=== PATIENT | female | born 1995 | race Hispanic/Latino ===

== ENCOUNTER 2023-02-12 10:58 | Emergency (ER) | payer SELFPAY ==
[2023-02-12 11:47] LABS: SARS-CoV-2 Antigen Rapid Res Positive (Negative)
--- NOTE | 2023-02-12 12:37 | ER ---
Nurse's Notes [facility] Name: Pushpa Valdes Age: 27 yrs Sex: Female : 1995 Arrival Date: 02/12/2023 Time: 10:58 Bed IW1 Private MD: Diagnosis: Fever, unspecified;SARS-associated coronavirus as the cause of diseases classified elsewhere;Cough Presentation: 02/12 11:17 Chief complaint: Patient states: cough, congestion, fever, body aches, and headache aa5 that began yesterday. Coronavirus screen: congestion, cough unrelated to allergies. Ebola Screen: Patient denies travel to an Ebola-affected area in the 21 days before illness onset. Initial Sepsis Screen: Does the patient meet any 2 criteria? HR > 90 bpm. Does the patient have a suspected source of infection? Yes:. Risk Assessment: Do you want to hurt yourself or someone else? Patient reports no desire to harm self or others. Onset of symptoms was February 11, 2023. 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 - Social history:: Smoking status: Patient denies any tobacco usage or history of. - Family history:: not pertinent. Assessment: 13:00 Reassessment: Patient is alert, oriented x 3, equal unlabored respirations, skin aa5 warm/dry/pink. Vital Signs: 11:17 BP 123 / 84; Pulse 118; Resp 20 S; Temp 100.4(O); Pulse Ox 100% on R/A; Weight 38.56 kg aa5 (R); Height 4 ft. 9 in. ; 11:17 Body Mass Index 18.39 (38.56 kg, 144.78 cm) aa5 ED Course: 11:00 Patient arrived in ED. im 11:01 Dean Starr MD is Attending Physician. [facility] 11:17 Arm band placed on. aa5 11:18 Triage completed. aa5 11:48 Notified ED physician of a critical lab result(s). covid+. ll1 Administered Medications: 13:05 Drug: Ibuprofen PO 400 mg PO once Route: PO; aa5 13:08 Follow up: Response: No adverse reaction aa5 13:05 Drug: AZITHromycin PO 500 mg PO once Route: PO; aa5 13: Follow up: Response: No adverse reaction aa5 13:05 Drug: Famotidine PO 40 mg PO once Route: PO; aa5 13:07 Follow up: Response: No adverse reaction aa5 13:05 Drug: Ondansetron PO 4 mg PO once Route: PO; aa5 13: Follow up: Response: No adverse reaction aa5 Outcome: 12:36 Discharge ordered by . ochoa 13:00 Discharged to home ambulatory, with significant other, aa5 13: Condition: stable 13:00 Discharge instructions given to patient, Instructed on discharge instructions, follow up and referral plans. medication usage, Demonstrated understanding of instructions, follow-up care, medications, Prescriptions given X 5 13:08 Patient left the ED. aa5 Signatures: Dean Starr MD MD cha Calderon, Audri, RN RN aa5 Tammy Melgoza, GEOFFREY RN ll1 Lacey Malik
--- NOTE | 2023-02-12 12:37 | EDPHYS ---
Physician Documentation [facility] Name: Pushpa Valdes Age: 27 yrs Sex: Female : 1995 Arrival Date: 02/12/2023 Time: 10:58 Bed IW1 Private MD: ED Physician Dean Starr HPI: 02/12 12:26 This 27 yrs old Female presents to ER via Ambulatory with complaints of Flu ochoa Symptoms. 12:26 The patient or guardian reports airway noise, cough, difficulty breathing, flu ochoa symptoms, arthralgias, low-grade fever, myalgias. Onset: The symptoms/episode began/occurred 1 day(s) ago. Modifying factors: The symptoms are alleviated by nothing. the symptoms are aggravated by cold environment. fever , cough , body aches x 1 day. Associated signs and symptoms: Pertinent positives: fever, nausea, rhinorrhea, sore throat. The patient reports fever, that was measured at 101 degrees Fahrenheit. Severity of symptoms: At their worst the symptoms were moderate in the emergency department the symptoms are unchanged. Associated signs and symptoms: Pertinent positives: backache, chills, cough, runny nose, sinus congestion, sinus drainage, sore throat, swelling. The patient has experienced similar episodes in the past, a few times. 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 - Social history:: Smoking status: Patient denies any tobacco usage or history of. - Family history:: not pertinent. ROS: 12:31 Eyes: Negative for injury, pain, redness, and discharge, ENT: Negative for injury, ochoa pain, and discharge, Neck: Negative for injury, pain, and swelling, Cardiovascular: Negative for chest pain, palpitations, and edema, Abdomen/GI: Negative for abdominal pain, nausea, vomiting, diarrhea, and constipation, Back: Negative for injury and pain, : Negative for injury, bleeding, discharge, and swelling, MS/Extremity: Negative for injury and deformity, Skin: Negative for injury, rash, and discoloration, Neuro: Negative for headache, weakness, numbness, tingling, and seizure, Psych: Negative for depression, anxiety, suicide ideation, homicidal ideation, and hallucinations, Allergy/Immunology: Negative for hives, rash, and allergies, Endocrine: Negative for neck swelling, polydipsia, polyuria, polyphagia, and marked weight changes, 12:31 Constitutional: Positive for chills, fatigue, fever, malaise, poor PO intake, 12:31 ENT: Positive for rhinorrhea, sinus congestion, sinus pain, sore throat, 12: Respiratory: Positive for cough, with no reported sputum, Exam: 12:31 Head/Face: Normocephalic, atraumatic. Eyes: Pupils equal round and reactive to light, ochoa extra-ocular motions intact. Lids and lashes normal. Conjunctiva and sclera are non-icteric and not injected. Cornea within normal limits. Periorbital areas with no swelling, redness, or edema. Neck: Trachea midline, no thyromegaly or masses palpated, and no cervical lymphadenopathy. Supple, full range of motion without nuchal rigidity, or vertebral point tenderness. No Meningismus. Chest/axilla: Normal chest wall appearance and motion. Nontender with no deformity. No lesions are appreciated. Respiratory: Lungs have equal breath sounds bilaterally, clear to auscultation and percussion. No rales, rhonchi or wheezes noted. No increased work of breathing, no retractions or nasal flaring. Abdomen/GI: Soft, non-tender, with normal bowel sounds. No distension or tympany. No guarding or rebound. No evidence of tenderness throughout. Back: No spinal tenderness. No costovertebral tenderness. Full range of motion. Skin: Warm, dry with normal turgor. Normal color with no rashes, no lesions, and no evidence of cellulitis. MS/ Extremity: Pulses equal, no cyanosis. Neurovascular intact. Full, normal range of motion. Neuro: Awake and alert, GCS 15, oriented to person, place, time, and situation. Cranial nerves II-XII grossly intact. Motor strength 5/5 in all extremities. Sensory grossly intact. Cerebellar exam normal. Normal gait. Psych: Awake, alert, with orientation to person, place and time. Behavior, mood, and affect are within normal limits. 12:31 Constitutional: The patient appears febrile, 12:31 ENT: Posterior pharynx: Airway: normal, no evidence of obstruction, Tonsils: are normal in appearance, with erythema, Uvula: normal, midline, non-edematous, no erythema, swelling, that is mild, erythema, that is mild, exudate, that is mild, peritonsillar mass, is not appreciated, Vital Signs: 11:17 BP 123 / 84; Pulse 118; Resp 20 S; Temp 100.4(O); Pulse Ox 100% on R/A; Weight 38.56 kg aa5 (R); Height 4 ft. 9 in. ; 11:17 Body Mass Index 18.39 (38.56 kg, 144.78 cm) aa5 MDM: 11:01 Patient medically screened. [facility] 12:34 Differential diagnosis: obstructed airway, bronchitis, flu, URI, viral Infection, ochoa bacterial infection, URI, bronchitis, pneumonia UTI, gastroenteritis. Antibiotic administration: The patient is discharged and will get outpatient antibiotics, Zithromax. Differential Diagnosis sepsis. Data reviewed: vital signs, nurses notes, lab test result(s), Flu: negative. I considered the following discharge prescriptions or medication management in the emergency department Medications were administered in the Emergency Department. See MAR. Test considered but Not performed: Labs: no cbc, no comp met. Historians other than the Patient: Family Member: . Care significantly affected by the following chronic conditions: none. Counseling: I had a detailed discussion with the patient and/or guardian regarding the historical points, exam findings, and any diagnostic results supporting the discharge/admit diagnosis, lab results, the need for outpatient follow up, for definitive care, a family practitioner. 02/12 11: Order name: Flu; Complete Time: 12:17 [facility] 02/12 11: Order name: SARS RAPID; Complete Time: 12:17 [facility] 02/12 11:01 Order name: Strep [facility] 02/12 11:48 Order name: Throat Culture EDMS Administered Medications: 13:05 Drug: Ibuprofen PO 400 mg PO once Route: PO; aa5 13:08 Follow up: Response: No adverse reaction aa5 13:05 Drug: AZITHromycin PO 500 mg PO once Route: PO; aa5 13:07 Follow up: Response: No adverse reaction aa5 13:05 Drug: Famotidine PO 40 mg PO once Route: PO; aa5 13:07 Follow up: Response: No adverse reaction aa5 13:05 Drug: Ondansetron PO 4 mg PO once Route: PO; aa5 13:07 Follow up: Response: No adverse reaction aa5 Disposition Summary: 02/12/23 12:36 Discharge Ordered Notes: Location: Home [facility] Problem: new [facility] Symptoms: have improved ochoa Condition: Stable ochoa Diagnosis - Fever, unspecified ochoa - SARS-associated coronavirus as the cause of diseases classified elsewhere [facility] - Cough ochoa Followup: [facility] - With: Private Physician - When: 2 - 3 days - Reason: Recheck today's complaints, Continuance of care, Re-evaluation by your physician Discharge Instructions: - Discharge Summary Sheet [facility] - Fever, Adult ochoa - Cool Mist Vaporizer [facility] - Cough, Adult [facility] - COVID-19 ochoa - COVID-19: What Your Test Results Mean - [facility] (12/12/2020) [facility] - 10 Things You Can Do to Manage Your COVID-19 Symptoms at Home - [facility] (09/29/2020) [facility] - Symptoms of COVID-19 - [facility] (06/05/2021) [facility] - Viral Illness, Adult [facility] - COVID-19: What to Do If You Are Sick - [facility] (06/05/2021) [facility] Forms: - Medication Reconciliation Form [facility] - Thank You Letter [facility] - Antibiotic Education [facility] - Prescription Opioid Use [facility] - Patient Portal Instructions [facility] - Leadership Thank You Letter [facility] - Work release form ll1 Prescriptions: - Paxlovid 300 mg (150 mg x 2)-100 mg Oral Tablet, Dose Pack - take 1 dose pack ORAL route per package directions; 1 packet; Refills: 0, [facility] Product Selection Permitted - ondansetron 4 mg Oral Tablet,disintegrating - take 1 tablet ORAL route every 6-8 hours for 5 days; 20 tablet; Refills: 0, [facility] Product Selection Permitted - Pepcid 20 mg Oral tablet - take 1 tablet ORAL route every 12 hours for 21 days; 42 tablet; Refills: 0, [facility] Product Selection Permitted - Tessalon Perles 100 mg Oral capsule - take 1 capsule ORAL route every 8 hours As needed; 30 capsule; Refills: 0, [facility] Product Selection Permitted - Zithromax Z-Brandyn 250 mg Oral tablet - take 1 tablet ORAL route as directed for 5 days Day 1 - take two (2) tablets [facility] one time. Day 2, 3, 4 , 5 take one (1) tablet once daily.; 6 tablet; Refills: 0, Product Selection Permitted Signatures: Dispatcher [employer] Dean Peguero MD MD cha Calderon, Audri, RN RN aa5
[2023-02-12] MEDS ORDERED: IBUPROFEN 400 MG TAB ONE (13:08)
[2023-02-12] MEDS ORDERED: AZITHROMYCIN 250 MG TAB ONE (13:08)
[2023-02-12] MEDS ORDERED: FAMOTIDINE 20 MG TAB ONE (13:09)
[2023-02-12] MEDS ORDERED: ONDANSETRON 4 MG (ODT) TAB ONE (13:09)
[2023-02-12 13:12] VITALS: BP 123/84; TEMP 100.4; O2SAT 100
== END 2023-02-12 13:08 | disposition home or self-care (01) ==
LOC: ER 10:58
DX: U07.1 COVID-19 (principal); R05.9 Cough, unspecified
CPT/HCPCS: 36415; 87070; 87081; 87804; 87811; 99283; Q0162

== ENCOUNTER 2023-02-19 18:56 | Emergency (ER) | payer SELFPAY ==
--- NOTE | 2023-02-19 20:09 | RAD REPORT ---
EXAM DESCRIPTION: RAD - Chest Single View - 02/19/2023 7:58 pm CLINICAL HISTORY: Congestion;Cough Chest pain. COMPARISON: <Comparisons> FINDINGS: Portable technique limits examination quality. The lungs are grossly clear. The heart is normal in size. No displaced fractures.Mild dextroscoliosis of the thoracic spine. IMPRESSION: No acute intrathoracic process suspected.
--- NOTE | 2023-02-19 20:13 | EDPHYS ---
Physician Documentation [facility] Name: Pushpa Valdes Age: 27 yrs Sex: Female : 1995 Arrival Date: 02/19/2023 Time: 18:56 Bed IW1 Private MD: ED Physician Bravo Finley HPI: 02/19 20:37 This 27 yrs old Female presents to ER via Ambulatory with complaints of Sore kb Throat, Body Aches. 20:37 Patient is a 27-year-old female who was diagnosed with COVID 7 days ago, presents for kb cough, congestion, sore throat, headache and chest pain with cough. Significant other states she is just not getting any better. 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 Flu vaccine is not up to date. - Social history:: Smoking status: Patient denies any tobacco usage or history of. ROS: 20:37 Abdomen/GI: Negative for abdominal pain, nausea, vomiting, diarrhea, and constipation, kb 20:37 Constitutional: Positive for body aches, chills, fatigue, fever, malaise, 20:37 ENT: Positive for sinus congestion, sore throat, 20:37 Respiratory: Positive for cough, 20:37 Neuro: Positive for headache, 20:37 All other systems are negative, Exam: 20:37 Constitutional: This is a well developed, well nourished patient who is awake, alert, kb and in no acute distress. Head/Face: Normocephalic, atraumatic. ENT: Moist Mucous membranes Cardiovascular: Regular rate Respiratory: Respirations even and unlabored. No increased work of breathing. Talking in full sentences Abdomen/GI: Soft, non-tender. No distention Skin: Warm, dry with normal turgor. Normal color. MS/ Extremity: Pulses equal, no cyanosis. Neurovascular intact. Full, normal range of motion. Neuro: Awake and alert, GCS 15, oriented to person, place, time, and situation. Moves all extremities. Normal gait. Vital Signs: 19:31 BP 112 / 69; Pulse 87; Resp 17; Temp 98.9; Pulse Ox 100% ; Weight 38.56 kg; Height 4 vc1 ft. 9 in. ; Pain 9/10; 19:31 Body Mass Index 18.39 (38.56 kg, 144.78 cm) vc1 19:31 Pain Scale: Adult vc1 MDM: 18:57 Patient medically screened. kb 20:38 Differential diagnosis: Flu, COVID, URI, pneumonia. Data reviewed: vital signs, nurses kb notes. I considered the following discharge prescriptions or medication management in the emergency department I discussed and recommended Over The Counter medications, Antibiotics: At this time antibiotics are not recommended. Counseling: I had a detailed discussion with the patient and/or guardian regarding the historical points, exam findings, and any diagnostic results supporting the discharge/admit diagnosis, radiology results, the need for outpatient follow up, a family practitioner, to return to the emergency department if symptoms worsen or persist or if there are any questions or concerns that arise at home. 02/19 19:09 Order name: Chest Single View XRAY; Complete Time: 20:12 kb Administered Medications: No medications were administered Disposition: 20:22 Co-signature as Attending Physician, Bravo Finley MD I reviewed the patient's care rt provided by the Advanced Practice Provider and agree with the diagnosis and treatment plan. Disposition Summary: 02/19/23 20:13 Discharge Ordered Notes: Location: Home kb Condition: Stable kb Diagnosis - SARS-associated coronavirus as the cause of diseases classified elsewhere kb Followup: kb - With: Emergency Department - When: As needed - Reason: Worsening of condition Followup: kb - With: Private Physician - When: 2 - 3 days - Reason: Recheck today's complaints, Continuance of care, Re-evaluation by your physician Discharge Instructions: - Discharge Summary Sheet kb - COVID-19 kb - Viral Illness, Adult kb Forms: - Medication Reconciliation Form kb - Thank You Letter kb - Antibiotic Education kb - Prescription Opioid Use kb - Patient Portal Instructions kb - Leadership Thank You Letter kb Addendum: 02/21/2023 10:18 Co-signature as Attending Physician, Bravo Finley MD I reviewed the patient's care r t provided by the Advanced Practice Provider and agree with the diagnosis and treatment plan. Signatures: Dispatcher [employer] Adrianne Oro, MARTINAC PABLO-Bernice Rbieiro RN RN vc1 Bravo Finley MD MD rt
--- NOTE | 2023-02-19 20:13 | ER ---
Nurse's Notes [facility] Name: Pushpa Valdes Age: 27 yrs Sex: Female : 1995 Arrival Date: 02/19/2023 Time: 18:56 Bed IW1 Private MD: Diagnosis: SARS-associated coronavirus as the cause of diseases classified elsewhere Presentation: 02/19 19:31 Chief complaint: Patient states: My head and my chest hurts. It hurts worse when I vc1 cough I'm having a hard time sleeping because my chest and head hurts so bad. Spouse and/or significant other states: She was here last week with and tested positive for covid. She was prescribed Paxlovid but can't swallow it and if I crush it she throws it up. She just seems to be getting worse. Coronavirus screen: Vaccine status: Patient reports being unvaccinated. Client denies travel out of the [place] in the last 14 days. cough unrelated to allergies, fever, nausea, runny nose, shortness of breath, sore throat, Client presents with at least one sign or symptom that may indicate coronavirus-19. Ebola Screen: Patient negative for fever greater than or equal to 101.5 degrees Fahrenheit, and additional compatible Ebola Virus Disease symptoms Patient denies exposure to infectious person. Patient denies travel to an Ebola-affected area in the 21 days before illness onset. No symptoms or risks identified at this time. Initial Sepsis Screen: Does the patient meet any 2 criteria? No. Patient's initial sepsis screen is negative. Does the patient have a suspected source of infection? No. Patient's initial sepsis screen is negative. Risk Assessment: Do you want to hurt yourself or someone else? Patient reports no desire to harm self or others. Onset of symptoms was February 10, 2023. 19:31 Method Of Arrival: Ambulatory vc1 19:31 Acuity: ESPERANZA 4 vc1 Triage Assessment: 19:36 General: Appears in no apparent distress. ill, Behavior is calm, cooperative, vc1 appropriate for age. Pain: Complains of pain in head, chest, nose and throat, generalized body aches Pain does not radiate. Pain currently is 9 out of 10 on a pain scale. Quality of pain is described as pressure, sharp, tension. Pain began for a week worsening Is continuous, episodic, Aggravated by coughing Noted to be quiet/stoic, resistant to movement, Also complains of nausea, sleeplessness. EENT: Reports pain when swallowing Pain is 9 out of 10 on a pain scale. Neuro: Level of Consciousness is awake, alert, obeys commands, Oriented to person, place, time, situation, Appropriate for age Reports headache frontal area, that is the "worst ever", weakness. Cardiovascular: No deficits noted. Respiratory: Reports shortness of breath cough that is pain with cough pain with movement pain with respiration Airway is patent Respiratory effort is even, unlabored, Respiratory pattern is regular, symmetrical, the patient has mild shortness of breath. GI: Reports nausea. : No deficits noted. No signs and/or symptoms were reported regarding the genitourinary system. Derm: No deficits noted. No signs and/or symptoms reported regarding the dermatologic system. Musculoskeletal: Reports weakness in genralized. 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 Flu vaccine is not up to date. - Social history:: Smoking status: Patient denies any tobacco usage or history of. Screenin:39 Abuse screen: Denies threats or abuse. Nutritional screening: No deficits noted. vc1 Tuberculosis screening: No symptoms or risk factors identified. 20:17 [facility] ED Fall Risk Assessment (Adult) History of falling in the last 3 months, jb4 including since admission No falls in past 3 months (0 pts) Confusion or Disorientation No (0 pts) Score/Fall Risk Level 0 - 2 = Low Risk. Assessment: 20:17 Reassessment: Patient appears in no apparent distress at this time. Patient and/or jb4 family updated on plan of care and expected duration. Pain level reassessed. Patient is alert, oriented x 3, equal unlabored respirations, skin warm/dry/pink. Vital Signs: 19:31 BP 112 / 69; Pulse 87; Resp 17; Temp 98.9; Pulse Ox 100% ; Weight 38.56 kg; Height 4 vc1 ft. 9 in. ; Pain 9/10; 19:31 Body Mass Index 18.39 (38.56 kg, 144.78 cm) vc1 19:31 Pain Scale: Adult vc1 ED Course: 18:57 Patient arrived in ED. rg4 18:57 Adrianne Barrow FNP-C [facility] kb 18:57 Bravo Finley MD is Attending Physician. kb 19:35 Triage completed. vc1 19:36 Arm band placed on right wrist. vc1 20:00 Chest Single View XRAY In Process Unspecified. EDMS 20:17 Patient has correct armband on for positive identification. jb4 20:17 No provider procedures requiring assistance completed. Patient did not have IV access jb4 during this emergency room visit. Administered Medications: No medications were administered Medication: 19:40 VIS not applicable for this client. vc1 Outcome: 20:13 Discharge ordered by . kb 20:18 Discharged to home ambulatory, with family, jb4 20:18 Condition: stable 20:18 Discharge instructions given to patient, Instructed on discharge instructions, follow up and referral plans. Demonstrated understanding of instructions, follow-up care, 20:18 Patient left the ED. jb4 Signatures: Dispatcher [employer] EDPR Adrianne Barrow FNP-C FNP-Carolyne Gonzalez rg4 Charan Ahumada, RN RN jb4 Bernice Mason RN RN vc1 Corrections: (The following items were deleted from the chart) 20:18 20:17 Patient has correct armband on for positive identification. Bed in low position. jb4 Call light in reach. Side rails up X 1. jb4
[2023-02-19 21:23] VITALS: BP 112/69; TEMP 98.9; O2SAT 100
== END 2023-02-19 20:18 | disposition home or self-care (01) ==
LOC: ER 18:56
DX: U07.1 COVID-19 (principal)
CPT/HCPCS: 71045; 99282